=== PATIENT | male | born 1985 | race Caucasian/White ===

== ENCOUNTER 2018-08-23 09:14 | Emergency (ER) | payer OTHER ==
[~2018-08-23] VITALS: Ht 175.3 cm; Wt 80.0 kg
[2018-08-23] MEDS ORDERED: SOD CHLORIDE 0.9% 1,000 ML IV STA (09:21)
[2018-08-23 09:28] VITALS: Ht 175.3 cm; Wt 80.0 kg
--- NOTE | 2018-08-23 10:10 | ERD ---
ER Documentation Chief Complaint Chief Complaint BIB EMS FOR EVAL OF CP AND DIZZINESS HPI This is a very pleasant 33-year-old gentleman no significant past medical history presents to the emergency room complaining of temporary chest pain or shortness of breath when exercising. 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 The patient states that during the activity started to feel lightheaded diaphoretic and had some shortness of breath. He describes very transient left-sided chest discomfort that was described as sharp, nonpleuritic. Symptoms are 100% alleviated with the patient stopped the activity. He denies any prior history of exertional chest pain or syncope. No family history of sudden or early acute coronary syndrome. Patient denies any recent travel or immobilization or calf swelling. No history of DVT. ROS All systems reviewed and are negative except as per history of present illness. Medications Home Meds Reported Medications Amoxicillin* (Amoxicillin*) 500 Mg Cap, 500 MG PO TID, #20 CAP FOR 10 DAYS, START DATE 08/19/18 08/23/18 Allergies Allergies: Coded Allergies: Sulfa (Sulfonamide Antibiotics) (Verified Allergy, Unknown, 08/23/18) PMhx/Soc Medical and Surgical Hx: pt denies Surgical Hx Hx Miscellaneous Medical Probl: Yes (SLEEP APNEA) Hx Alcohol Use: No Hx Substance Use: No Hx Tobacco Use: No Smoking Status: Never smoker FmHx Family History: No diabetes, No coronary disease Physical Exam Vitals Vital Signs Date Temp Pulse Resp B/P (MAP) Pulse Ox O2 O2 Flow FiO2 Time Delivery Rate 08/23/18 97.9 91 18 109/72 100 09:28 (84) Physical Exam General: Well developed, well nourished, no acute distress Head: Normocephalic, atraumatic. Eyes: Pupils equally reactive, EOM intact ENT: Moist mucous membranes Neck: Supple, no lymphadenopathy Respiratory: Lungs clear bilaterally, no distress Cardiovascular: RRR, no murmurs, rubs, or gallops Abdominal: Soft, non-tender, non-distended, no peritoneal signs : Deferred MSK: No edema, no unilateral swelling, 5/5 strength Neurologic: Alert and oriented, moving all extremities, normal speech, no focal weakness, no cerebellar signs Skin: No rash Psych: Normal mood Result Diagram: 7/2/19 0927 7/2/19 0927 Results 24 hrs Laboratory Tests Test 08/23/18 09:27 White Blood Count 3.5 10^3/ul Red Blood Count 4.29 10^6/ul Hemoglobin 13.5 g/dl Hematocrit 38.5 % Mean Corpuscular Volume 89.7 fl Mean Corpuscular Hemoglobin 31.5 pg Mean Corpuscular Hemoglobin Concent 35.1 g/dl Red Cell Distribution Width 12.0 % Platelet Count 256 10^3/UL Mean Platelet Volume 9.4 fl Immature Granulocytes % 0.300 % Neutrophils % 58.4 % Lymphocytes % 29.8 % Monocytes % 9.5 % Eosinophils % 1.1 % Basophils % 0.9 % Nucleated Red Blood Cells % 0.0 /100WBC Immature Granulocytes # 0.010 10^3/ul Neutrophils # 2.0 10^3/ul Lymphocytes # 1.0 10^3/ul Monocytes # 0.3 10^3/ul Eosinophils # 0.0 10^3/ul Basophils # 0.0 10^3/ul Nucleated Red Blood Cells # 0.0 10^3/ul Sodium Level 140 mmol/L Potassium Level 3.6 mmol/L Chloride Level 105 mmol/L Carbon Dioxide Level 22 mmol/L Anion Gap 13 Blood Urea Nitrogen 19 mg/dl Creatinine 1.32 mg/dl Est Glomerular Filtrat Rate mL/min > 60 mL/min Glucose Level 123 mg/dl Calcium Level 9.8 mg/dl Troponin I < 0.012 ng/ml Current Medications Medications Dose Sig/Fang Start Time Status Last (Trade) Ordered Route PRN Stop Time Admin Dose Reason Admin Sodium 1,000 ml @ Q1H STAT 08/23/18 DC 08/23/18 Chloride 1,000 mls/hr IV 09:21 08/23/18 09:30 10:20 Procedures/MDM EKG, MONITORS, & DIAGNOSTIC IMAGING: EKG: I reviewed and interpreted a 12-lead EKG. Rhythm: Normal sinus rhythm ST Changes: No contiguous ST segment elevations T waves: No contiguous T wave inversions Impression:, Normal QRS and QTc, no Brugada, normal EKG Chest x-ray: I reviewed and interpreted a 1 view of the chest Mediastinum: No enlargement Cardiac silhouette: No cardiomegaly Airspace: Clear lung bender bilaterally without evidence of pneumothorax Bones: No evidence of fracture LAB INTERPRETATION: I reviewed the laboratory testing and it shows mild renal insufficiency MEDICAL DECISION MAKING: Patient presents with exertional shortness of breath and chest pain is likely secondary to overexertion. The patient states that he has not been appropriately working out prior to this activity. ER COURSE: * Patient was given IV fluids. Laboratory testing is reassuring. The patient has mild renal insufficiency possibly secondary to overexertion, mild dehydration. * At this point the patient can be safely discharged. Patient has no murmur, very low clinical concern for hypertrophic cardiomyopathy. Patient however needs medical clearance prior to resuming physical activity. His custodian supervisor was notified. CONSULTATION: None DISPOSITION PLAN: The patient does not have an identifiable emergent medical condition that warrants inpatient hospitalization at this time. The patient is deemed safe for discharge with outpatient follow-up. We discussed follow up with the patient's primary care doctor within 24 to 48 hours as needed. We also discussed return to the emergency room for worsening symptoms or worsening condition. Outpatient referral: None required Discharge Medications: None required Departure Diagnosis: Primary Impression: Dehydration Additional Impression: Chest pain Chest pain type: unspecified Qualified Codes: R07.9 - Chest pain, unspecified Condition: Stable AYANA GARCIAS MD Aug 23, 2018 10:10
[2018-08-23] MEDS ORDERED: AMOX500C2 PO (10:37)
[2018-08-23 11:23] VITALS: BP 108/78; PULSE 77; RESP 18
== END 2018-08-23 11:41 | disposition home or self-care (01) ==
LOC: E/R 09:14
DX: E86.0 Dehydration (principal); R07.9 Chest pain, unspecified
CPT/HCPCS: 36415; 71045; 80048; 84484; 85025; 93005; 99285; J7030